=== PATIENT | female | born 1995 | race Caucasian/White ===

== ENCOUNTER 2019-05-01 11:12 | Emergency (ER) | payer SELFPAY ==
[2019-05-01 11:25] VITALS: TEMP 97.8; BMI 27.4
[2019-05-01] MEDS ORDERED: IBUPROFEN 400 MG TABLET (FP) PO ONE ×2 (13:09→13:31)
[2019-05-01] MEDS ORDERED: CYCLOBENZAPRINE HCL 10 MG TABLET (FP) PO ONE (13:09)
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
[2019-05-01] MEDS ORDERED: CYCLOBENZAPRINE HCL 10 MG TABLET (FP) ONE (13:31)
[2019-05-01 15:23] VITALS: BP 124/69; PULSE 79
== END 2019-05-01 14:55 | disposition home or self-care (01) ==
LOC: JERFT 11:12
DX: M54.9 Dorsalgia, unspecified (principal); S13.4XXA Sprain of ligaments of cervical spine, initial encounter; M54.2 Cervicalgia; V43.52XA Car driver injured in collision with other type car in traffic accident, initial encounter; Y93.89 Activity, other specified; Y92.410 Unspecified street and highway as the place of occurrence of the external cause
CPT/HCPCS: 70450-TC; 72040-TC; 72070-TC-FY; 99282-25